=== PATIENT | female | born 1990 | race Two or more races ===

== ENCOUNTER 2018-07-12 11:21 | Observation (INO) | payer BC ==
[~2018-07-12] VITALS: Ht 160 cm; Wt 60.8 kg
[2018-07-12] MEDS ORDERED: PNV1TABL50 PO (11:50)
[2018-07-12] MEDS ORDERED: FERR325T6 PO (11:51)
[2018-07-12] MEDS ORDERED: LACTATED RINGERS 1,000 ML IV SCH (12:30)
[2018-07-12] MEDS ORDERED: ACETAMINOPHEN 500MG TABLET PO NR (12:37)
[2018-07-12] MEDS ORDERED: TERBUTALINE SULFATE 1MG/ML VIAL SUBCUT NR (12:38)
[2018-07-12 12:55] LABS: CLARITY URINE CLEAR (CLEAR); COLOR URINE YELLOW (YELLOW); KETONES URINE NEGATIVE (NEGATIVE); LEUKOCYTE ESTERASE URINE 3+ (NEGATIVE); NITRITE URINE NEGATIVE (NEGATIVE); OCCULT BLOOD URINE NEGATIVE (NEGATIVE); PH URINE 7.5 (4.5-8.0); PROTEIN URINE NEGATIVE (NEGATIVE); SPECIFIC GRAVITY URINE 1.008 (1.005-1.030); UROBILINOGEN URINE 0.2 E.U./dL (0.2-1.0)
[2018-07-12] MEDS ORDERED: NITROFURANTOIN 100MG M/M CAPSULE PO SCH (14:30)
[2018-07-12] MEDS ORDERED: NITR-87 MT (14:37)
== END 2018-07-12 14:55 | disposition home or self-care (01) ==
LOC: L&D 11:21
PROVIDERS: ADMIT Obstetrics & Gynecology; ATTEND Obstetrics & Gynecology
DX: O62.9 Abnormality of forces of labor, unspecified (principal); Z3A.29 29 weeks gestation of pregnancy
CPT/HCPCS: 81003; 87086; 99281; G0378; J7120